=== PATIENT | female | born 1965 | race Caucasian/White ===

== ENCOUNTER 2018-11-25 08:24 | Inpatient (IN) | payer OTHER ==
[~2018-11-25] VITALS: Ht 152.4 cm; Wt 51.3 kg
[2018-11-25] MEDS ORDERED: BUPIVACAINE-MPF/EPI 0.25% 30 ML VIAL INJ ONE (10:07)
[2018-11-25] MEDS ORDERED: DEXAMETHASONE 4 MG/ML VIAL ONE (10:31)
[2018-11-25] MEDS ORDERED: ROCURONIUM 50 MG/5 ML VIAL IV ONE (10:31)
[2018-11-25] MEDS ORDERED: SUCCINYLCHOLINE CHLORIDE 200 MG/10 ML VIAL IVP ONE (10:31)
[2018-11-25] MEDS ORDERED: ONDANSETRON 4 MG/2 ML VIAL ONE (10:31)
[2018-11-25] MEDS ORDERED: SEVOFLURANE 250 ML BTL INH ONE (10:31)
[2018-11-25] MEDS ORDERED: KETOROLAC 30 MG/ML VIAL ONE (10:31)
[2018-11-25] MEDS ORDERED: PROPOFOL 200 MG/20 ML VIAL IV ONE (10:31)
[2018-11-25] MEDS ORDERED: MIDAZOLAM 2 MG/2 ML VIAL ONE (10:43)
[2018-11-25] MEDS ORDERED: MEPERIDINE 50 MG/ML SYR ONE (10:43)
[2018-11-25] MEDS ORDERED: fentaNYL 0.05 MG/ML VIAL ONE (10:43)
[2018-11-25] MEDS ORDERED: LACTATED RINGERS 1,000 ML IV SCH (11:03)
[2018-11-25] MEDS ORDERED: HYDROmorphone 1 MG/ML AMP IVP PRN (11:05)
[2018-11-25] MEDS ORDERED: MEPERIDINE 25 MG/ML SYR IVP PRN (11:05)
[2018-11-25] MEDS ORDERED: diphenhydrAMINE 50 MG/ML VIAL IVP PRN (11:05)
[2018-11-25] MEDS ORDERED: ONDANSETRON 4 MG/2 ML VIAL IVP PRN (11:05)
[2018-11-25] MEDS ORDERED: HYDROcodone/APAP 5/325 MG 1 TAB TAB PO PRN (12:20)
[2018-11-25] MEDS ORDERED: MORPHINE SULFATE 4 MG/ML SYR IV PRN (12:20)
[2018-11-25] MEDS ORDERED: MORPHINE SULFATE 2 MG/ML SYR IVP PRN (12:20)
[2018-11-25 12:30] VITALS: BP 139/69
--- NOTE | 2018-11-25 13:20 | NUR ---
PT ARRIVED ON UNIT POST SURGERY. RECEIVED HANDOFF REPORT. PT IS STABLE AND IN NO APPARENT DISTRESS. ALL SAFETY MEASURES ARE IN PLACE. VITAL SIGNS TAKEN 139/69 HR 86 99% SPO2 98.6 TEMP. PT APPEARS STABLE AND IN NO APPARENT DISTRESS. PT STATED THE ONLY PAIN SHE HAS IS FROM THE TRANSFER FROM [facility] TO BED. WILL CONTINUE TO MONITOR.
--- NOTE | 2018-11-25 13:30 | NUR ---
PT STATED SHE HAS NAUSEA. GAVE PT EMESIS BAG AND WILL ADMINISTER ZOFRAN FOR NAUSEA.
[2018-11-25] MEDS: DEXT 5% /NACL 0.9% 1,000 ML IV SCH (13:48)
[2018-11-25] MEDS ORDERED: cloNIDine 0.1 MG TAB PO PRN (15:05)
--- NOTE | 2018-11-25 15:37 | NUR ---
FREQUENT ROUNDING ON PT PT IS STABLE AND IN NO APPARENT DISTRESS. NO SIGNS OF REACTION TO ANCEF. D5NS INFUSING AT 50ML/HR. PT STATED PAIN IN TOLERABLE AND SHE IS RESTING COMFORTABLY. IV SITE SHOWS NO SIGNS OF INFILTRATION OR INFLAMMATION. FAMILY AT BEDSIDE. ALL SAFETY MEASURES ARE IN PLACE. WILL CONTINUE TO MONITOR.
--- NOTE | 2018-11-25 17:25 | NUR ---
PT IS STABLE AND IN NO APPARENT DISTRESS. ALL SAFETY MEASURES ARE IN PLACE
[2018-11-25] MEDS: ONDANSETRON 4 MG/2 ML VIAL IV PRN ×2 (18:26→22:31)
--- NOTE | 2018-11-25 19:35 | NUR ---
ENDORSED PT TO FLEXOGRAPHIC PRESS HELPER NURSE PT IS STABLE IN NO APPARENT DISTRESS. ALL SAFETY MEASURES ARE IN PLACE
--- NOTE | 2018-11-25 19:36 | NUR ---
RECEIVED PT IN BED,AA, O X 4, UKRAINIAN SPEAKING ONLY W/ FAMILY, FAMILY ACTS OUTSIDE SALES. PT WAS COMPLAINING THAT SHE WAS NOT FEELING WELL, PER PREVIOUS SHIFT & THAT SHE WS WHEELED FROM THE OR AND RECEIVED IN THE UNIT AT 1230 PM. SHE WAS C/O OF MORPHINE AND NOT TO GIVE TO HER.
[2018-11-25 20:00] VITALS: BP 121/60
[2018-11-25] MEDS: HYDROmorphone 1 MG/ML AMP IVP PRN (20:35)
--- NOTE | 2018-11-25 20:35 | NUR ---
COMPUTER SLOW DUE TO [email or web address] SCAN THE MED LATER SOON COMPUTER FIXED. Addendum: 11/25/18 at 2240 by Carol Rucker RN ENCODED THE MED MANUALLY AT 2034
--- NOTE | 2018-11-25 20:35 | NUR ---
PT C/O OF PAIN IN THE SITE 4 INCISIONS AND PAIN UPON MOVEMENT. GIVEN DILAUDID INSTEAD.
--- NOTE | 2018-11-25 22:31 | NUR ---
GAVE ZOFRAN C/O OF NAUSEA, PT GIVEN COLD COMPRESS REQUESTED
--- NOTE | 2018-11-26 02:53 | NUR ---
PT SLEEPING COMFORTABLY ON HER SIDE, NO COMPLAINTS AT THIS TIME
[2018-11-26 04:00] VITALS: BP 122/54
[2018-11-26 06:25] LABS: BASOPHILS % (AUTO) 0.2 % (0.0-2.0); HEMATOCRIT 37.8 % (36-48); HEMOGLOBIN 12.5 g/dL (12.0-16.0); LYMPHOCYTES # (AUTO) 1.5 K/uL (2.5-16.5); LYMPHOCYTES % (AUTO) 11.5 % (20.5-51.1); MEAN CORPUSCULAR HEMOGLOBIN 31 pg (27-31); MEAN CORPUSCULAR HGB CONC 33 g/dL (33-37); MEAN CORPUSCULAR VOLUME 92.8 fL (80-94); MONOCYTES # (AUTO) 0.8 K/uL (0.8-1.0); MONOCYTES % (AUTO) 6.3 % (1.7-9.3); NEUTROPHILS # (AUTO) 10.5 K/uL (1.8-7.7); PLATELET COUNT (AUTO) 224 K/uL (140-450); RED BLOOD CELL COUNT(AUTO) 4.08 MIL/uL (4.20-5.40); RED CELL DISTRIBUTION WIDTH 12.8 % (11.6-13.7); WHITE BLOOD COUNT (AUTO) 12.8 K/uL (4.8-10.8)
--- NOTE | 2018-11-26 07:25 | NUR ---
RECEIVED BEDSIDE REPORT FROM CONTROL EQUIPMENT ELECTRICIAN NURSE FOR CONTINUITY OF CARE. PATIENT IS AWAKE AND RESTING ON BED AT THIS TIME. PATIENT SPEAKS AMERICAN ONLY, ABLE TO MAKE NEEDS KNOWS AND FOLLOW SIMPLE COMMAND. PATIENT DENIES PAIN. RESPIRATION EVEN AND UNLABORED. NO SOB AND SIGNS OF DISTRESS NOTED. IV ON L WRIST 20G, INTACT AND CLEAN, INFUSING PER MD ORDER. JESSIE DRAIN NOTED AND COLLECTED 10 ML RED DRAINING. DRESSINGS ON ABDOMINAL REGION NOTED, DRY AND INTACT. PATIENT IS CONTINENT AND ABLE TO AMBULATE WITH STANDBY ASSIST. DISCUSSED PLAN OF CARE WITH PATIENT AND PATIENT VERBALIZED OK. SAFETY MEASURES IN PLACE. INSTRUCTED PATIENT TO USE THE CALL LIGHT FOR ANY ASSISTANCE AND PATIENT WAS AWARE.
[2018-11-26 08:00] VITALS: BP 119/57
--- NOTE | 2018-11-26 08:16 | NUR ---
RECEIVED A CALL FROM SURGEON DR FAGAN, REPORTED PATIENT'S CURRENT VITAL SIGNS AND CONDITION TO DR FAGAN. PER DR FAGAN, PATIENT IS OK TO BE DISCHARGE ONCE DR BOYD COMES TO DO THE ROUND.
[2018-11-26] MEDS: DEXT 5% /NACL 0.9% 1,000 ML IV SCH (08:56)
--- NOTE | 2018-11-26 09:25 | NUR ---
ASSISTED PATIENT TO SIT UP ON BED. PATIENT TOLERATED WELL. DENIES PAIN. NO SIGNS OF DISTRESS NOTED. INSTRUCTED PATIENT TO USE THE CALL LIGHT FOR ANY ASSISTANCE AND PATIENT WAS AWARE. BED IN LOW POSITION AND CALL LIGHT WITHIN REACH.
[2018-11-26 09:42] LABS: ANION GAP 12.2 (8-16); CARBON DIOXIDE 26.6 mmol/L (21-32); CREATININE 0.6 mg/dL (0.6-1.3); POTASSIUM 3.8 mmol/L (3.5-5.1)
[2018-11-26] MEDS ORDERED: ENOXAPARIN 30 MG/0.3 ML SYR SUBQ SCH (09:53)
--- NOTE | 2018-11-26 11:26 | NUR ---
PATIENT IS SITTING UP ON A CHAIR AND TALKING TO VISITOR AT BEDSIDE. NO SIGNS OF DISTRESS NOTED. INSTRUCTED PATIENT TO USE THE CALL LIGHT FOR ASSISTANCE AND PATIENT WAS AWARE.
--- NOTE | 2018-11-26 12:05 | NUR ---
PATIENT COMPLAINED PAIN 5/10 AROUND HER INCISIONAL SITES, ADMINISTERED PRN PAIN MED [place]. PATIENT TOLERATED WELL. PATIENT IS SITTING UP ON CHAIR AND TALKING TO FRIENDS BY BEDSIDE. JESSIE DRAIN COLLECTED 20 ML RED DRAINING. INSTRUCTED PATIENT TO USE THE CALL LIGHT FOR ANY ASSISTANCE AND PATIENT WAS AWARE.
--- NOTE | 2018-11-26 13:37 | NUR ---
PATIENT IS TALKING TO VISITORS AT BEDSIDE. DENIES PAIN. NO SIGNS OF DISTRESS NOTED. SAFETY MEASURES IN PLACE.
--- NOTE | 2018-11-26 15:15 | NUR ---
PATIENT IS AWAKE AND TALKING TO VISITORS AT BEDSIDE. DENIES PAIN. NO SIGNS OF DISTRESS NOTED. SAFETY MEASURES IN PLACE.
--- NOTE | 2018-11-26 15:40 | NUR ---
INFORMED PATIENT THAT SHE WILL BE DISCHARGE HOME TODAY. PER PATIENT, SHE WILL CALL HER NIECE AND OLDER SISTER TO PICK HER UP. SHE WILL LET ME KNOW WHEN SHE FINDS OUT WHEN THEY ARE ABLE TO PICK HER UP FROM THE HOSPITAL.
--- NOTE | 2018-11-26 16:00 | NUR ---
PER PATIENT, HER OLD SISTER WILL BE PICKING HER UP AROUND THE EVENING.
--- NOTE | 2018-11-26 17:45 | NUR ---
DISCHARGE DOCUMENT HAS BEEN SIGNED. D/C JESSIE DRAIN, AND PATIENT TOLERATED WELL. JESSIE COLLECTED 25 ML RED DRAINING. PICTURES TAKEN OF INCISIONAL SITES AND JESSIE DRAIN SITE. PATIENT IS TALKING TO VISITORS AT BEDSIDE. NO SIGNS OF DISTRESS NOTED. AWAITING FOR NIECE AND OLDER SISTER TO BE ARRIVE.
--- NOTE | 2018-11-26 18:05 | NUR ---
PATIENT IS EATING DINNER AND TALKING TO VISITORS. NO SIGNS OF DISTRESS NOTED. WAITING FOR NIECE CATE AND OLDER SISTER TO BE ARRIVE. SAFETY MEASURES IN PLACE.
--- NOTE | 2018-11-26 18:42 | NUR ---
DISCHARGE INSTRUCTION PROVIDED TO PATIENT AND PATIENT'S OLD SISTER AND NIECE CATE. PRINTED DISCHARGE INSTRUCTION PROVIDED, PRESCRIPTION PROVIDED AND DR FAGAN BUSINESS CARD PROVIDED. EDUCATED PATIENT TO FOLLOW UP WITH MD, INCISIONAL CARE, MEDICATION REGIMEN, AND GO SEEK MEDICAL HELPS IF SHE EXPERIENCES SOB, SWELLING, PAIN, GENERALIZED WEAKNESS. PATIENT AND FAMILY VERBALIZED UNDERSTANDING. D/C IV AND IV CANNULA INTACT, MINIMAL BLEEDING AT IV SITE. REMOVED ALL ID BANDS. PATIENT CHECKED ALL THE CABINETS AND TOOK ALL HER BELONGINGS. PATIENT IS DISCHARGE AT THIS TIME ACCOMPANIED BY FAMILY. PATIENT IS IN A STABLE CONDITION.
[2018-11-27] MEDS ORDERED: ENOXAPARIN 30 MG/0.3 ML SYR SUBQ SCH (09:00)
== END 2018-11-26 18:42 | disposition home or self-care (01) | DRG 263 ==
LOC: MDS 08:24 → MMU 08:25 → MDS 12:20 → MTU 12:20
PROVIDERS: ADMIT Internal Medicine Pulmonary Disease; ATTEND Internal Medicine Pulmonary Disease
PROC: 0FT44ZZ Resection of Gallbladder, Percutaneous Endoscopic Approach (ICD-10-PCS; principal; 2018-11-25 10:00)
DX: K80.10 Calculus of gallbladder with chronic cholecystitis without obstruction (principal); E78.5 Hyperlipidemia, unspecified; I10 Essential (primary) hypertension
CPT/HCPCS: 36415; 71045; 80048; 82374; 85025; 88304; J0330; J0690; J1100; J1170; J1650; J1885; J2175; J2250; J2270; J2405; J2704; J3010; J3490; J7030; J7042; J7060; J7120